=== PATIENT | male | born 1975 | race Caucasian/White ===

== ENCOUNTER → 2016-07-04 | Outpatient (CLI) | payer BC ==
[~2016-07-04] MED LIST: FRRS300 PO; PANT40TA PO
--- NOTE | 2016-07-04 10:00 | DIAGNOSTIC IMAGING REPORT ---
CT OF THE CHEST WITHOUT IV CONTRAST CLINICAL HISTORY: Lung nodules. COMPARISON STUDY: CT of the abdomen and pelvis June 23, 2015. CT DOSE: 287.14 mGy.cm TECHNIQUE: Axial images of the chest were obtained without IV contrast. Images were reviewed in the axial, sagittal, and coronal planes. IV contrast was not administered for this examination. FINDINGS: No enlarged axillary, mediastinal or hilar lymph nodes are present. The size of the heart is normal. There is no pericardial effusion. A hypodense right lobe thyroid nodule measures approximately 1.8 cm. Central airways are patent. There are no areas of consolidation. The previously described 4 mm left lower lobe nodule shown on image 254 of [address] of June 23, 2015. Note is made of an 8 mm right lower lobe nodule shown on image 171. This appears to be along an accessory fissure. A few additional smaller nodules are noted. Skeletal structures are unremarkable. Visualized portions of the upper abdomen are unremarkable. IMPRESSION: 1. 4 mm left lower lobe nodule which is stable since CT of June 23, 2015. This nodule is likely benign. 2. 8 mm perifissural nodule within the right lower lobe. This portion of the lungs was not imaged on prior abdominal CT. This nodule is indeterminate although likely benign. A follow-up chest CT in 6 months to ensure stability is recommended. 3. 1.8 cm right lobe thyroid nodule. A thyroid ultrasound is recommended. Electronically signed by: Jefferson Howard M.D. 07/04/2016 9:59 AM Dictated Date/Time: 07/04/2016 9:51 AM
== END | disposition home or self-care (01) ==
LOC: C.CTS 09:38
PROVIDERS: ATTEND Nurse Practitioner
DX: R91.1 Solitary pulmonary nodule (principal)

== ENCOUNTER → 2016-07-11 | Outpatient (CLI) | payer OTHER, BC ==
--- NOTE | 2016-07-11 14:58 | DIAGNOSTIC IMAGING REPORT ---
LEFT FOOT MIN 3 VIEWS ROUTINE CLINICAL HISTORY: Left foot pain. COMPARISON: None FINDINGS: Alignment of the left foot is anatomic. No fracture or osseous lesion is present. No erosions are identified. There is no radiographic evidence for stress fracture. IMPRESSION: Unremarkable left foot radiographs. Electronically signed by: Jefferson Howard M.D. 07/11/2016 2:57 PM Dictated Date/Time: 07/11/2016 2:54 PM
== END | disposition home or self-care (01) ==
LOC: C.RAD1850 14:30
PROVIDERS: ATTEND Emergency Medicine
DX: M79.672 Pain in left foot (principal)

== ENCOUNTER → 2016-07-15 | Outpatient (CLI) | payer BC ==
--- NOTE | 2016-07-15 15:22 | DIAGNOSTIC IMAGING REPORT ---
ULTRASOUND OF THE THYROID GLAND CLINICAL HISTORY: Thyroid nodule. COMPARISON STUDY: Chest CT dated 07/04/16. TECHNIQUE: Real-time, grayscale, and color flow sonography of the thyroid gland is performed utilizing a high-frequency linear transducer. Images are reviewed in the transverse and longitudinal planes. FINDINGS: Right lobe: The right lobe of the thyroid gland is normal in size and homogeneous in echotexture, measuring 5.9 x 2.0 x 2.1 cm. There is a slightly hyperechoic solid nodule in the lower pole measuring 2.2 x 1.1 x 1.7 cm. Internal flow is seen on color imaging. A smaller hyperechoic nodule in the posterior lower pole measures 0.8 x 0.6 x 0.6 cm. Left lobe: The left lobe of the thyroid gland is normal in size and homogeneous in echotexture, measuring 5.7 x 1.5 x 1.7 cm. A slightly hyperechoic nodule either within or just below the lower pole measures 0.7 x 0.4 x 0.5 cm. Isthmus: The thyroid isthmus is normal in appearance and measures 0.2 cm in AP diameter. IMPRESSION: Thyroid nodules as above. The largest nodule is in the right lower pole and measures up to 2.2 cm. Fine-needle aspiration of this nodule is recommended based on size criteria. Electronically signed by: Doyle Oro M.D. 07/15/2016 3:21 PM Dictated Date/Time: 07/15/2016 3:19 PM
== END | disposition home or self-care (01) ==
LOC: C.ULTR 14:50
PROVIDERS: ATTEND Nurse Practitioner Family
DX: E04.1 Nontoxic single thyroid nodule (principal)

== ENCOUNTER → 2016-07-26 | Outpatient (CLI) | payer BC ==
--- NOTE | 2016-07-26 13:43 | Discharge Instructions ---
Discharge Instructions Procedure Procedure Date: Jul 26, 2016. Reason for visit: Thyroid Nodule/Us Was Done 07/15. Discharge Discharge Date: Jul 26, 2016. Discharge Diagnosis: s/p thyroid nodule FNA Instructions Activity Recommendations: No limitations Return to School/Work: no limitations Recommended Home Diet: No Limitations Provider Instructions: ACTIVITY RECOMMENDATIONS: * Rest today. * Resume regular activity in one day. MEDICATIONS: * May take Tylenol or Ibuprofen as needed for pain. DIET: * Resume previous diet. SPECIAL CARE INSTRUCTIONS: Call your doctor if: * Temperature above 101 degrees F. * Pain not relieved by pain medicine ordered. * Increased drainage or redness from incision. * Notify your doctor with any questions or concerns. Call your doctor or go to the nearest Emergency Department if you experience: * Increased chest pain or shortness of breath. FOLLOW UP VISIT: Follow-up with Referring Physician as scheduled. Allergies Coded Allergies: Aspirin (Verified Allergy, Unknown, 08/03/15) Penicillins (Verified Adverse Reaction, Mild, STOMACH PAIN AFTER TAKING AMOXICILLIN, 08/03/15) Corky Escamilla Recommendations: Call your doctor if: * Temperature above 101 degrees * Pain not relieved by pain medicine ordered * There is increased drainage or redness from any incision * You have any unanswered questions or concerns. Your Doctors Instructions noted above were prepared by provider Jefferson Howard. Patient Signature Section: Patient Instructions Signature Page Surjit Wagner Patient (or Guardian) Signature/Date: I have read and understand the instructions given to me by my caregivers. Caregiver/RN/Doctor Signature/Date: The above-named patient and/or guardian has received patient instructions on this date. + Original Patient Signature Page (only) stays with chart. Please make copy for patient.
--- NOTE | 2016-07-26 14:02 | DIAGNOSTIC IMAGING REPORT ---
ULTRASOUND GUIDED FINE NEEDLE ASPIRATION OF RIGHT LOBE THYROID NODULE CLINICAL HISTORY: Thyroid nodule. COMPARISON STUDY: Ultrasound July 15, 2016 PROCEDURE: The procedure, risks and benefits were discussed with the patient. The patient agreed to the procedure and informed written consent was obtained. The procedure was performed by Dr. Howard following a timeout. Sonography of the thyroid gland demonstrated the 2.2 cm right lobe nodule. This was targeted for fine needle aspiration. Skin was prepped and draped in sterile fashion and local anesthesia was achieved with 1% lidocaine. Under direct ultrasound guidance, 2 25-gauge fine needle aspirations were performed. These were deemed preliminarily adequate. The patient tolerated the procedure well and no immediate complications were evident. IMPRESSION: Ultrasound guided fine needle aspiration of the 2.2 cm right lobe thyroid nodule. Electronically signed by: Jefferson Howard M.D. 07/26/2016 2:01 PM Dictated Date/Time: 07/26/2016 2:00 PM
== END | disposition home or self-care (01) ==
LOC: C.ULTR 12:41
PROVIDERS: ATTEND Nurse Practitioner Family
DX: E04.1 Nontoxic single thyroid nodule (principal)